=== PATIENT | male | born 1965 | race Caucasian/White ===

== ENCOUNTER 2020-08-20 16:13 | Outpatient (CLI) | payer OTHER, SELFPAY ==
--- NOTE | ~2020-08-20 | XR_ITS ---
EXAMINATION: XR hip BI 2V w AP pelvis DATE: 08/20/2020 17:03 INDICATION: Severe right sacroiliitis. Polyarticular psoriatic arthritis. TECHNIQUE: An anteroposterior view of the pelvis and 2 views of each hip were obtained. COMPARISON: None. FINDINGS: Bone alignment is normal. No fracture. There is mild osteoarthritis of the hips. The sacroi liac joints are normal. IMPRESSION: 1. Mild osteoarthritis of the hips. 2. Normal sacroiliac joints. Reviewed, dictated and finalized at location A.
== END 2020-08-20 16:14 ==
PROVIDERS: Visit Provider Internal Medicine
DX: M46.1 Sacroiliitis, not elsewhere classified (principal); L40.59 Other psoriatic arthropathy; M76.60 Achilles tendinitis, unspecified leg; M16.0 Bilateral primary osteoarthritis of hip
CPT/HCPCS: 73521

== ENCOUNTER → 2020-11-28 16:00 | Outpatient (CLI) | payer OTHER, SELFPAY ==
--- NOTE | ~2020-11-28 | XR_ITS ---
XR hand RT 2V, XR wrist RT 2V 11/28/2020 17:29 Indication: Joint pain Procedure: 2 views of the right hand and 2 views of the right wrist Comparison: No prior studies for comparison. Findings: There is osteoarthritis of the interphalangeal joints, first, second and third metacarpopha langeal joints, first carpometacarpal and triscaphe joints. Normal mineralization. No fracture or tra umatic malalignment. No significant soft tissue abnormality. No foreign bodies. Impression: 1: Mild polyarticular osteoarthritis of the right hand and wrist. Reviewed, dictated and finalized at location A. Impression: 1: Mild polyarticular osteoarthritis of the right hand and wrist. Impression: 1: Mild polyarticular osteoarthritis of the right hand and wrist.
--- NOTE | ~2020-11-28 | XR_ITS ---
XR hand LT 2V, XR wrist LT 2V 11/28/2020 17:29 Indication: Multiple joint pain. Procedure: 2 views of the left hand and left wrist Comparison: No prior studies for comparison. Findings: There is mild osteoarthritis of the interphalangeal joints, first, second, third and fourth metacarpophalangeal joints, first carpometacarpal and triscaphe joints. Normal mineralization. No fr acture or traumatic malalignment. No significant soft tissue abnormality. No foreign bodies. Impression: 1: Mild polyarticular osteoarthritis of the left hand and wrist. Reviewed, dictated and finalized at location A. Impression: 1: Mild polyarticular osteoarthritis of the left hand and wrist. Impression: 1: Mild polyarticular osteoarthritis of the left hand and wrist.
--- NOTE | ~2020-11-28 | XR_ITS ---
XR ankle RT 2V, XR foot RT 2V 11/28/2020 17:29 Indication: Polyarticular osteoarthritis Procedure: 2 views each of the right ankle and foot Comparison: No prior studies for comparison. Findings: There is mild polyarticular osteoarthritis of the midfoot and right first MTP joint. Promin ent degenerative calcaneal enthesophytes. No erosive changes. Ankle mortise intact. No focal soft tis irish abnormality. No foreign bodies. Impression: 1: Mild polyarticular osteoarthritis of the right ankle and foot. Reviewed, dictated and finalized at location A. Impression: 1: Mild polyarticular osteoarthritis of the right ankle and foot. Impression: 1: Mild polyarticular osteoarthritis of the right ankle and foot.
--- NOTE | ~2020-11-28 | XR_ITS ---
XR sacroiliac joints min 3V 11/28/2020 17:29 Indication: Multiple joint pain Procedure: 3 views of the sacroiliac joints Comparison: 08/20/2020 Findings: The sacroiliac joints are symmetric without significant degenerative change, erosion or ank ylosis. Sacral foramen are symmetric. There are symmetric degenerative changes of the hips. Impression: 1: No significant abnormality of the sacroiliac joints. Reviewed, dictated and finalized at location A. Impression: 1: No significant abnormality of the sacroiliac joints.
--- NOTE | ~2020-11-28 | XR_ITS ---
XR ankle LT 2V, XR foot LT 2V 11/28/2020 17:29 Indication: Multiple joint pain Procedure: 2 views left ankle and left foot Comparison: No prior studies for comparison. Findings: There are degenerative calcaneal enthesophytes. No fracture or traumatic malalignment there is a metallic radiopaque device at the calcaneus posteriorly. No significant soft tissue abnormality . Osteopenia. No erosive changes. There are mild degenerative changes of the hindfoot. There is mild osteoarthritis of the first MTP joint. Impression: 1: Mild polyarticular osteoarthritis. Reviewed, dictated and finalized at location A. Impression: 1: Mild polyarticular osteoarthritis. Impression: 1: Mild polyarticular osteoarthritis.
== END ==
DX: M79.10 Myalgia, unspecified site (principal); R53.81 Other malaise; M19.042 Primary osteoarthritis, left hand; M19.032 Primary osteoarthritis, left wrist; M19.041 Primary osteoarthritis, right hand; M19.031 Primary osteoarthritis, right wrist; M19.072 Primary osteoarthritis, left ankle and foot; M19.071 Primary osteoarthritis, right ankle and foot
CPT/HCPCS: 72202; 73100; 73120; 73600; 73620

== ENCOUNTER → 2021-11-21 16:29 | Outpatient (CLI) | payer OTHER, SELFPAY ==
--- NOTE | ~2021-11-21 | XR_ITS ---
XR thoracic spine 2V DATE: 11/21/2021 18:01 INDICATION: Back pain TECHNIQUE: Standing AP, lateral and swimmer views COMPARISON: None FINDINGS: Prominent degenerative disc disease in the lower cervical spine including severe degenerati ve disc disease at the mid and lower cervical spine. Diffuse idiopathic skeletal hyperostosis of the thoracic spine. No thoracic spine fracture or bone destruction is detected. The thoracic pedicles are intact. No para spinal soft tissue thickening. IMPRESSION: Severe degenerative disc disease of the mid and lower cervical spine Diffuse idiopathic skeletal hyperostosis of the thoracic spine Reviewed, dictated and finalized at location B. IMPRESSION: Severe degenerative disc disease of the mid and lower cervical spin e Diffuse idiopathic skeletal hyperostosis of the thoracic spine
--- NOTE | ~2021-11-21 | XR_ITS ---
XR lumbar spine 2-3V DATE: 11/21/2021 18:01 INDICATION: Back pain TECHNIQUE: AP, lateral and coned lateral lumbosacral views COMPARISON: None FINDINGS: Prominent degenerative spurring in the lower thoracic spine. Huge bridging osteophyte on th e right at L1-2. There is moderately severe degenerative disc disease at L1 to and L2-3, with mild re trolisthesis at L2-3. Moderate degenerative disc disease at L4-5 and L5-S1. There is minimal retrolisthesis at L5-S1. There is grade 1 anterolisthesis at L3-4 and L4-5 due to degenerative change at the apophyseal joints . No fracture or bone destruction is detected. The lumbar pedicles are intact. The sacroiliac joints are intact. IMPRESSION: Multilevel degenerative disc disease. Huge bridging osteophyte on the right at L1-2. Grade 1 anterolisthesis at L3-4 and L4-5 due to degenerative change at the apophyseal joints Reviewed, dictated and finalized at location B. IMPRESSION: Multilevel degenerative disc disease. Huge bridging osteophyte on t he right at L1-2. Grade 1 anterolisthesis at L3-4 and L4-5 due to degenerative change at the apop hyseal joints
== END ==
PROVIDERS: PCP Nurse Practitioner Family; Visit Provider Internal Medicine Rheumatology
DX: M51.36 Other intervertebral disc degeneration, lumbar region (principal); M48.14 Ankylosing hyperostosis [Forestier], thoracic region
CPT/HCPCS: 72070; 72100

== ENCOUNTER → 2021-12-30 17:04 | Outpatient (CLI) | payer OTHER, SELFPAY ==
--- NOTE | ~2021-12-30 | MR_ITS ---
EXAMINATION: MR lumbar spine wo con DATE: 12/30/2021 17:36 INDICATION: Dorsalgia. TECHNIQUE: Magnetic resonance imaging (MRI) of the lumbar spine was performed without intravenous con trast. Sequences included sagittal T2-weighted FSE, sagittal T2-weighted FS FSE, sagittal T1-weighted FSE, and axial T2-weighted FSE. COMPARISON: Lumbar spine radiographs 11/21/2021 FINDINGS: There is 5 degrees dextrocurvature of lumbar spine. There is 6 mm retrolisthesis of L2 on L 3 and 3 mm anterolisthesis of L3 on L4 and L4 on L5. There is mild chronic anterior wedging of T12 an d L1 vertebral bodies, likely physiologic. There is moderately decreased disc height at L2-L3 and mil dly decreased disc height at L3-L4, L4-L5, and L5-S1. The distal spinal cord signal intensity is norm al. The conus medullaris is at L1. The following disc levels are specifically discussed: L1-L2: The disc is mildly bulging. There is severe bilateral facet joint osteoarthritis. There is mil d bilateral neural foraminal stenosis. There is no central canal stenosis. L2-L3: The disc is bulging and has an annular fissure. There is severe bilateral facet joint osteoart hritis. There is hypertrophy of the ligamentum flavum. There is moderate bilateral neural foraminal s tenosis. There is moderate central canal stenosis. L3-L4: The disc is bulging. There is severe bilateral facet joint osteoarthritis. There is hypertroph y of the ligamentum flavum. There is mild bilateral neural foraminal stenosis. There is severe centra l canal stenosis. L4-L5: The disc is bulging. There is severe bilateral facet joint osteoarthritis. There is hypertroph y of the ligamentum flavum. There is moderate bilateral neural foraminal stenosis. There is severe ce ntral canal stenosis. L5-S1: The disc is bulging and has an annular fissure. There is severe bilateral facet joint osteoart hritis. There is hypertrophy of the ligamentum flavum. There is mild bilateral neural foraminal steno sis. There is mild central canal stenosis. There is moderate stenosis of the lateral recesses. IMPRESSION: 1. Severe lumbar spondylosis. Reviewed, dictated and finalized at location A.
== END ==
PROVIDERS: PCP Family Medicine; Visit Provider Internal Medicine Rheumatology
DX: M47.896 Other spondylosis, lumbar region (principal)
CPT/HCPCS: 72148

== ENCOUNTER → 2022-03-04 16:02 | Outpatient (CLI) | payer OTHER, SELFPAY ==
--- NOTE | ~2022-03-04 | MR_ITS ---
EXAMINATION: MR ankle RT wo con DATE: 03/04/2022 16:36 INDICATION: Right ankle pain TECHNIQUE: Magnetic resonance imaging (MRI) of the right ankle was performed without intravenous cont rast. Sequences included sagittal, coronal, and axial proton-density weighted fast spin echo without and with fat saturation. COMPARISON: None. FINDINGS: Medial ankle ligaments: Heterotopic ossification along the deep deltoid ligament with loss of the normally well-defined stria kay pattern consistent with sequela of chronic sprain. Additional heterotopic ossification consistent with sequela of chronic sprain along the anterior superficial deltoid ligament. The spring ligament complex is normal. Lateral ankle ligaments: The anterior and posterior inferior tibiofibular ligaments are normal. The anterior talofibular ligam ent appears lax and attenuated consistent with chronic tear. Calcaneofibular and posterior talofibula r ligaments are normal. Tendons: Moderate tendinosis of distal Achilles tendon which is completely avulsed and retracted 5 cm proximal from its calcaneal insertion where there is a large plantar calcaneal spur mild reactive edema. Mild tendinopathy and small longitudinal split tear of the peroneus longus tendon at the level of the dis nino tip of the lateral malleolus. The peroneus brevis tendon is normal. The tibialis anterior and ext ensor hallucis longus and extensor digitorum longus tendons are normal. The tibialis posterior, flexo r digitorum longus and flexor hallucis longus tendons are normal. Plantar fascia: Likely chronic plantar enthesopathy with thickening and increased signal of the proximal plantar apon eurosis with moderate-sized plantar calcaneal spur at its origin. No surrounding soft tissue or marro w edema to suggest acute plantar fasciitis. Bones/other: Bone alignment is normal. There is marrow edema surrounding a small linear low signal intensity subco rtical fracture line along the plantar/lateral margin of the head of the talus underlying its articul ation at the superior facet of the subtalar joint. Bone marrow signal is otherwise normal. No patholo gic marrow replacing process. Mild polyarticular osteoarthritis at the right ankle and a few of the t arsal metatarsal joints in the midfoot. Fluid: Small fluid collection at the retracted Achilles tendon tear defect. Likely reactive edema in the sub cutaneous tissues surrounding the right ankle. Physiologic amount fluid in the joint spaces. IMPRESSION: 1. Moderate Achilles tendinosis with full-thickness avulsion and 5 cm proximal retraction. 2. Small nondisplaced subarticular fracture line at the head of the talus underlying articulation at the anterior facet of the subtalar joint. 3. Mild peroneus longus tendinopathy with small longitudinal split tear. 4. Chronic medial and lateral ankle sprains with scarring and heterotopic ossification at the deep an d superficial deltoid ligament as well as lax and attenuated appearing anterior talofibular ligament which is of doubtful functional integrity. 5. Moderate chronic plantar enthesopathy without tear. Reviewed, dictated and finalized at location B. IMPRESSION: 1. Moderate Achilles tendinosis with full-thickness avulsion and 5 cm proximal retraction. 2. Small nondisplaced subarticular fracture line at the head of the talus under lying articulation at the anterior facet of the subtalar joint. 3. Mild peroneus longus tendinopathy with small longitudinal split tear. 4. Chronic medial and lateral ankle sprains with scarring and heterotopic ossif ication at the deep and superficial deltoid ligament as well as lax and attenua kay appearing anterior talofibular ligament which is of doubtful functional int egrity. 5. Mo
== END ==
PROVIDERS: PCP Family Medicine; Visit Provider Podiatrist Foot & Ankle Surgery
DX: M76.61 Achilles tendinitis, right leg (principal); S92.124A Nondisplaced fracture of body of right talus, initial encounter for closed fracture; X58.XXXA Exposure to other specified factors, initial encounter
CPT/HCPCS: 73721

== ENCOUNTER 2022-09-19 08:06 | Emergency (ER) | payer OTHER, SELFPAY ==
[2022-09-19 08:16] VITALS: BP 138/117; PULSE 89; RESP 16; TEMP 38.3; O2SAT 97
--- NOTE | 2022-09-19 08:23 | ED.URI ---
HPI - URI/Sore Throat General Chief Complaint: Upper Respiratory Infection Stated Complaint: sore throat/body aches/weakness Time Seen by Provider: 09/19/22 08:23 History of Present Illness HPI Narrative: 57-year-old male presented for complaint of sore throat, headache, body aches since yesterday. Endorses chills last night and started with painful swallow today. Also with cold sore to upper lip for about 6 days. He denies sick contacts. He has taken Tylenol and ibuprofen for symptoms. He denies sinus congestion, cough, shortness breath, wheezing, nausea, vomiting. Related Data Home Medications Medication Instructions Recorded Confirmed adalimumab 10 mg/0.2 mL 0 mg subcut .COMPLEX 09/19/22 09/19/22 subcutaneous syringe kit Allergies Allergy/AdvReac Type Severity Reaction Status Date / Time No Known Allergies Allergy Verified 09/19/22 08:11 Review of Systems Review of Systems: CONSTITUTIONAL: Reports body aches, fever, chills, or sweats. EYES: Denies visual changes, redness, or discharge. ENT: Denies rhinorrhea, congestion, or otalgia. CARDIOVASCULAR: Denies chest pain, palpitations, or edema. RESPIRATORY: Denies dyspnea. GASTROINTESTINAL: Denies abdominal pain, nausea, vomiting, or diarrhea. SKIN: Denies rash, itching, or wounds. MUSCULOSKELETAL: Denies back pain, joint pain, or myalgia. [facility] Past Medical History Medical History Chronic bilateral low back pain HLD (hyperlipidemia) HTN (hypertension) IFG (impaired fasting glucose) MONIKA (obstructive sleep apnea) Seronegative rheumatoid arthritis Surgical History Surgical History H/O Achilles tendon repair Family History Family History Mother Hypertension Family history of diabetes mellitus in first degree relative Father Family history of elevated blood lipids Sibling Family history of malignant neoplasm of breast in first degree relative Social History Social History Smoking status: Never smoker Second hand tobacco smoke exposure: No Alcohol intake: current Drinks per week: 4 Substance use: never Substance use type: does not use Living arrangements: with family Occupation/Education: occupation Gender identity (if verbalized by the patient): Male Sexual Orientation (if Verbalized by the Patient): Straight or Heterosexual Exam Narrative: GENERAL: Mildly ill-appearing, no acute distress. EYES: conjunctivae clear ENT: Mucous membranes moist. TM pearly wilson with normal light reflex bilaterally; no tragal tenderness. Right upper lip with dried skin lesion consistent with cold sore. oropharynx erythematous Tonsils enlarged and without exudate. No drooling, no hoarseness, no trismus, uvula midline. No tripod positioning, hot potato voice, or soft palate swelling. NECK: Supple. No lymphadenopathy CHEST: Clear to auscultation, breath sounds equal. No respiratory distress, speaks in full sentences. HEART: Regular rate and rhythm. No murmur heard. SKIN: Warm, dry, no rash. NEURO: Alert and oriented x3. Course Course Emergency Course: Patient is aware of diagnosis, understands and agrees to treatment plan. Anticipatory guidance given. Patient agrees to follow-up as directed and is aware of reasons to seek care at the emergency department. Portions of this record may have been created with voice recognition software Level of Care: Express Care Visit Vital Signs Vital signs: Vital Signs Temperature 100.9 F H 09/19/22 08:16 Pulse Rate 89 09/19/22 08:16 Respiratory Rate 16 09/19/22 08:16 Blood Pressure 138/117 H 09/19/22 08:16 Pulse Oximetry 97 09/19/22 08:16 Oxygen Delivery Room Air 09/19/22 08:16 Temperature 100.9 F H 09/19/22 08:16 Pulse Rate 89
== END 2022-09-19 08:48 | disposition home or self-care (01) ==
PROVIDERS: Emergency Provider Nurse Practitioner Family; PCP Family Medicine
DX: B34.9 Viral infection, unspecified (principal); Z20.822 Contact with and (suspected) exposure to COVID-19; E78.5 Hyperlipidemia, unspecified; I10 Essential (primary) hypertension; R73.01 Impaired fasting glucose; M06.00 Rheumatoid arthritis without rheumatoid factor, unspecified site
CPT/HCPCS: 87081; 87426; 87804; 87880; 99213; C9803; G0463

== ENCOUNTER 2023-04-08 01:59 | Day surgery (SDC) | payer OTHER, SELFPAY ==
[2023-03-25 15:17] VITALS: BMI 35.2
--- NOTE | 2023-04-06 09:17 | SUR.PREOP ---
Patient called regarding upcoming procedure. Reviewed preop instructions, appointment times, and procedure prep.
--- NOTE | 2023-04-07 14:12 | PM.HPGS ---
History of Present Illness History of Present Illness Consent: Risks, benefits, and alternatives have been discussed and questions answered. Patient agrees to proceed with procedure. Chief complaint: Eructation Narrative: Jeremías Gómez is a 57 year old male who has been troubled by persistent excessive eructation. This can occur after meals or even during meals. Review of Systems Review of Systems: All systems reviewed & are unremarkable except as noted in HPI and below PMFSH Past Medical History Medical History Belching symptom Chronic bilateral low back pain Colon cancer screening HLD (hyperlipidemia) HTN (hypertension) IFG (impaired fasting glucose) Obesity MONIKA (obstructive sleep apnea) Seronegative rheumatoid arthritis Surgical History Surgical History H/O Achilles tendon repair Family History Family History Mother Hypertension Family history of diabetes mellitus in first degree relative Father Family history of elevated blood lipids Sibling Family history of malignant neoplasm of breast in first degree relative Social History Social History Smoking status: Never smoker Second hand tobacco smoke exposure: No Alcohol intake: current Drinks per week: 4 Substance use: never Substance use type: does not use Living arrangements: with family Occupation/Education: occupation Gender identity (if verbalized by the patient): Male Sexual Orientation (if Verbalized by the Patient): Straight or Heterosexual Spiritual care concerns: No Meds Home Medications and Allergies Home Medications Medication Instructions Recorded Confirmed Type adalimumab-atto 40 mg/0.8 mL 40 mg (0.8 mL) subcut Q14D #0.8 mL 01/29/23 04/08/23 Rx subcutaneous syringe (Jenni(CF)) diclofenac sodium 75 mg 75 mg PO BID #90 tabs 01/29/23 04/08/23 Rx tablet,delayed release folic acid 1 mg tablet 1 mg PO DAILY #60 tabs 01/29/23 04/08/23 Rx methotrexate sodium 5 mg tablet 20 mg PO WEEKLY 01/29/23 04/08/23 History atorvastatin 20 mg tablet 20 mg PO QHS #90 tabs 02/26/23 04/08/23 Rx lisinopril 40 mg tablet 40 mg PO DAILY #90 tabs 02/26/23 04/08/23 Rx hydrochlorothiazide 25 mg tablet 25 mg PO DAILY #90 tabs 03/27/23 04/08/23 Rx Allergies Allergy/AdvReac Type Severity Reaction Status Date / Time No Known Allergies Allergy Verified 04/08/23 08:25 Exam Const: General: alert Orientation/consciousness: patient oriented x3 Resp: Auscultation: clear to auscultation bilaterally Cardio: Rhythm: regular rhythm GI: GI Palp: Yes Soft to palpation and No Tenderness to palpation present (GI) Neuro: General: patient oriented x3 Assessment and Plan Assessment and plan (1) Belching symptom: Code(s): R14.2 - Eructation Status: Acute Assessment and Plan: EGD with possible biopsy or dilatation or cautery.
[2023-04-08 08:27] VITALS: BP 187/98; PULSE 66; RESP 20; TEMP 36.2; O2SAT 97; BMI 35.6
[2023-04-08] MEDS: LACTATED RINGERS 1,000 ML 150 ML IV CONT (08:29)
--- NOTE | 2023-04-08 09:01 | WPDANESEPPF ---
Anes - Initial Pre Proc Eval Procedure: Operation Date: 04/08/23 09:30 Proposed Procedures p Esophagogastroduodenoscopy - Nate Bermudez MD Date/Time: 04/08/23 09:01 Surgeon: Nate Bermudez MD Pre Op Diagnosis: Eructation Patient Data Age: 57 Gender: M Height: 1.83 m Weight: 119.3 kg Last Vital Signs Temp 97.2 F L 04/08/23 08:27 Pulse 66 04/08/23 08:27 Resp 20 04/08/23 08:27 BP 187/98 H 04/08/23 08:27 Pulse Ox 97 04/08/23 08:27 O2 Del Method Room Air 04/08/23 08:27 Allergies Allergy/AdvReac Type Severity Reaction Status Date / Time No Known Allergies Allergy Verified 04/08/23 08:25 Home Medications Medication Instructions Recorded Confirmed Type adalimumab-atto 40 mg/0.8 mL 40 mg (0.8 mL) subcut Q14D #0.8 mL 01/29/23 04/08/23 Rx subcutaneous syringe (Amjevita(CF)) diclofenac sodium 75 mg 75 mg PO BID #90 tabs 01/29/23 04/08/23 Rx tablet,delayed release folic acid 1 mg tablet 1 mg PO DAILY #60 tabs 01/29/23 04/08/23 Rx methotrexate sodium 5 mg tablet 20 mg PO WEEKLY 01/29/23 04/08/23 History atorvastatin 20 mg tablet 20 mg PO QHS #90 tabs 02/26/23 04/08/23 Rx lisinopril 40 mg tablet 40 mg PO DAILY #90 tabs 02/26/23 04/08/23 Rx hydrochlorothiazide 25 mg tablet 25 mg PO DAILY #90 tabs 03/27/23 04/08/23 Rx Patient hx anesthesia problems: none Family hx anesthesia problems: none Results Review: All pre-operative results and documents have been reviewed as part of the pre-operative evaluation. [facility] Past Medical History Medical History Belching symptom Chronic bilateral low back pain Colon cancer screening HLD (hyperlipidemia) HTN (hypertension) IFG (impaired fasting glucose) Obesity MONIKA (obstructive sleep apnea) Seronegative rheumatoid arthritis Surgical History Surgical History H/O Achilles tendon repair Family History Family History Mother Hypertension Family history of diabetes mellitus in first degree relative Father Family history of elevated blood lipids Sibling Family history of malignant neoplasm of breast in first degree relative Social History Social History Smoking status: Never smoker Second hand tobacco smoke exposure: No Alcohol intake: current Drinks per week: 4 Substance use: never Substance use type: does not use Living arrangements: with family Occupation/Education: occupation Gender identity (if verbalized by the patient): Male Sexual Orientation (if Verbalized by the Patient): Straight or Heterosexual Spiritual care concerns: No Anes - Eval Final PreProcedure Day of Procedure 04/08/23 09:01 Patient weight: obese Heart: regular rate and rhythm Lungs: clear to auscultation Airway: Mallampati scale class II Neurological: alert and oriented Last oral intake: >/= 8 hours ASA classification: III Emergent: no Anesthetic plan: proceed Anesthesia type and monitoring: general GIVS and standard monitoring Results Review: All pre-operative results and documents have been reviewed as part of the pre-operative evaluation. Informed Consent: The patient's anesthetic plan and its attendant risks and benefits were discussed with the patient/family/POA. Questions were solicited and answers provided to the satisfaction of the patient/family/POA.
[2023-04-08 09:40] VITALS: BP 114/56; PULSE 62; RESP 18; O2SAT 97
[2023-04-08 09:50] VITALS: BP 117/47; PULSE 61; RESP 16; O2SAT 97
[2023-04-08 10:00] VITALS: BP 137/68; PULSE 60; RESP 22; O2SAT 96
== END 2023-04-08 10:07 | disposition home or self-care (01) ==
PROVIDERS: PCP Family Medicine; Visit Provider Internal Medicine Gastroenterology
PROC: 0DJ08ZZ Inspection of Upper Intestinal Tract, Via Natural or Artificial Opening Endoscopic (ICD-10-PCS; CPT 43235; principal; 2023-04-08 09:30)
DX: K21.9 Gastro-esophageal reflux disease without esophagitis (principal); E78.5 Hyperlipidemia, unspecified; I10 Essential (primary) hypertension; G47.33 Obstructive sleep apnea (adult) (pediatric); M06.00 Rheumatoid arthritis without rheumatoid factor, unspecified site; E66.9 Obesity, unspecified; Z68.35 Body mass index [BMI] 35.0-35.9, adult; Z79.620 Long term (current) use of immunosuppressive biologic; Z79.631 Long term (current) use of antimetabolite agent; Z80.3 Family history of malignant neoplasm of breast
CPT/HCPCS: 43239; 87081; 88305; J2704; J7120

== ENCOUNTER 2023-05-04 07:35 | Outpatient (CLI) | payer OTHER, SELFPAY ==
--- NOTE | ~2023-05-04 | US_ITS ---
EXAMINATION: US abdomen limited DATE: 05/04/2023 08:08 INDICATION: Abnormal results of liver function studies. TECHNIQUE: Multiple grayscale and Doppler ultrasound images of the abdomen were obtained. COMPARISON: None FINDINGS: The visualized portions of the head and body of the pancreas are normal. There is diffuse h epatic steatosis. No liver surface nodularity. There is normal flow in main portal vein. The gallblad douglas is normal in size. No gallstones or gallbladder wall thickening. There is no sonographic Scales s ign. The common duct is normal and measures 6 mm. IMPRESSION: 1. Diffuse hepatic steatosis. Reviewed, dictated and finalized at location A. [employer]
== END 2023-05-04 07:36 ==
PROVIDERS: PCP Family Medicine; Visit Provider Internal Medicine Gastroenterology
DX: R94.5 Abnormal results of liver function studies (principal); K76.0 Fatty (change of) liver, not elsewhere classified
CPT/HCPCS: 76705

== ENCOUNTER 2023-10-26 08:13 | Emergency (ER) | payer OTHER, SELFPAY ==
[2023-10-26 08:21] VITALS: BP 179/77; PULSE 61; RESP 14; TEMP 36.6; O2SAT 96
--- NOTE | 2023-10-26 08:40 | ED.SKABFB ---
HPI - Skin/Abscess/Foreign Bdy General Chief complaint: Eye Problems Stated complaint: Eye Irritation Time Seen by Provider: 10/26/23 08:30 Source: patient and RN notes reviewed Mode of arrival: ambulatory Limitations: no limitations History of Present Illness HPI narrative: Patient presents today complaining of pruritic rash to his face and swelling to around his eyes. Symptoms started 4 days ago and have been slightly worsened since onset. Symptoms started after he has been clearing weeds around his home. Possibly poison miguelina. Reported some lip tingling and itching this morning, but this has since resolved. He has tried no medication for symptoms prior to arrival. Denies shortness of breath or difficulty swallowing. Related Data Home Medications Medication Instructions Recorded Confirmed methotrexate sodium 5 mg tablet 20 mg PO WEEKLY 01/29/23 10/26/23 Allergies Allergy/AdvReac Type Severity Reaction Status Date / Time No Known Allergies Allergy Verified 10/26/23 08:19 Review of Systems Review of Systems: CONSTITUTIONAL: Denies body aches, fever, chills, or sweats. EYES: Denies visual changes, redness, or discharge. ENT: Denies rhinorrhea, congestion, sore throat, or otalgia. CARDIOVASCULAR: Denies chest pain, palpitations, or edema. RESPIRATORY: Denies cough or dyspnea. GASTROINTESTINAL: Denies abdominal pain, nausea, vomiting, or diarrhea. GENITOURINARY: Denies dysuria or hematuria. SKIN: + pruritic facial rash and eye swelling MUSCULOSKELETAL: Denies back pain, joint pain, or myalgia. NEUROLOGIC: Denies headache, numbness, tingling, or weakness. PSYCH: Denies depression or anxiety. [facility] Past Medical History Medical History Belching symptom Chronic bilateral low back pain Colon cancer screening Fatty liver HLD (hyperlipidemia) HTN (hypertension) IFG (impaired fasting glucose) Obesity MONIKA (obstructive sleep apnea) Seronegative rheumatoid arthritis Surgical History Surgical History H/O Achilles tendon repair Family History Family History Mother Hypertension Family history of diabetes mellitus in first degree relative Father Family history of elevated blood lipids Sibling Family history of malignant neoplasm of breast in first degree relative Social History Social History Smoking status: Never smoker Second hand tobacco smoke exposure: No Alcohol intake: current Drinks per week: 4 Substance use: never Substance use type: does not use Living arrangements: with family Occupation/Education: occupation Gender identity (if verbalized by the patient): Male Sexual Orientation (if Verbalized by the Patient): Straight or Heterosexual Spiritual care concerns: No Comments At time of signature, I have reviewed and agree with nursing past medical, surgical, social and family history unless otherwise noted. Please see nursing chart for further information. There is no relevant family history pertinent to the presenting complaint Exam Narrative: GENERAL: Well-appearing, well-nourished, and in no acute distress. HEAD: Normocephalic, atraumatic. EYES: EOMI. PERRL. No redness or drainage. Conjunctivae normal. Moderate swelling to the bilateral periorbital area. ENT: Mucous membranes pink and moist. Nares clear. No rhinorrhea. NECK: Normal AROM. CHEST: No respiratory distress. EXTREMITIES: Normal range of motion. No edema. SKIN: Warm, dry. Capillary refill normal. Normal skin turgor. Erythematous maculopapular rash throughout most of the face and into the anterior hairline. No vesicles or papules. No induration or drainage. NEURO: No focal deficits. Alert and oriented x3. Gait steady. PSYCH: Normal affect. No signs of depress
[2023-10-26 08:44] VITALS: PULSE 61; RESP 14; O2SAT 96
== END 2023-10-26 08:55 | disposition home or self-care (01) ==
PROVIDERS: Emergency Provider Nurse Practitioner; PCP Family Medicine
DX: L25.5 Unspecified contact dermatitis due to plants, except food (principal); K76.0 Fatty (change of) liver, not elsewhere classified; E78.5 Hyperlipidemia, unspecified; I10 Essential (primary) hypertension; R73.01 Impaired fasting glucose; E66.9 Obesity, unspecified; Z68.36 Body mass index [BMI] 36.0-36.9, adult; M06.00 Rheumatoid arthritis without rheumatoid factor, unspecified site
CPT/HCPCS: 99213; G0463

== ENCOUNTER 2024-05-19 10:17 | Emergency (ER) | payer OTHER, SELFPAY ==
[2024-05-19 10:21] VITALS: BP 147/81; PULSE 67; RESP 16; TEMP 37; O2SAT 97
--- NOTE | 2024-05-19 10:43 | ED.URI ---
HPI - URI/Sore Throat General Chief Complaint: Ear Stated Complaint: lt ear discomfort, sorethroat Time Seen by Provider: 05/19/24 10:48 Source: patient, RN notes reviewed and old records reviewed Mode of arrival: ambulatory Limitations: no limitations History of Present Illness HPI Narrative: 58-year-old male presents to [facility] sore throat and left ear pain since yesterday. Has had some postnasal drainage on and off for a couple of weeks. Denies fevers. Has not taken anything for his symptoms Onset (ago): day(s) (1) Treatments prior to arrival: none Related Data Home Medications ?Medication ?Instructions ?Recorded ?Confirmed ?Last Taken ?Type gabapentin 100 mg capsule mg 05/19/24 Unknown History Allergies Allergy/AdvReac Type Severity Reaction Status Date / Time No Known Allergies Allergy Verified 05/19/24 10:40 Review of Systems Review of Systems: All systems reviewed & are unremarkable except as noted in HPI and below Constitutional: Constitutional: Reports no additional constitutional complaints ENT: Reports as per HPI, Reports otalgia and Reports sore throat Cardiovascular: Cardiovascular: Reports no additional cardiovascular complaints, Denies chest pain and Denies dyspnea Respiratory: Respiratory: Reports no additional respiratory complaints, Denies chest congestion, Denies cough and Denies dyspnea Musculoskeletal: Musculoskeletal: Reports no additional musculoskeletal complaints Integumentary/Breasts: Skin/Breast: Reports system reviewed and no additional complaints, except as docu PMFSH Past Medical History Medical History Fatty liver Obesity Colon cancer screening Belching symptom Chronic bilateral low back pain Seronegative rheumatoid arthritis MONIKA (obstructive sleep apnea) IFG (impaired fasting glucose) HLD (hyperlipidemia) HTN (hypertension) Surgical History Surgical History H/O Achilles tendon repair Family History Family History Mother Hypertension Family history of diabetes mellitus in first degree relative Father Family history of elevated blood lipids Sibling Family history of malignant neoplasm of breast in first degree relative Social History Social History Smoking status: Never smoker Second hand tobacco smoke exposure: No Alcohol intake: current Drinks per week: 4 Substance use: never Substance use type: does not use Living arrangements: with family Occupation/Education: occupation Gender identity (if verbalized by the patient): Male Sexual Orientation (if Verbalized by the Patient): Straight or Heterosexual Spiritual care concerns: No Comments At the time of my signature, I reviewed and agree with the nursing past medical, surgical, social, and family history. There is no relevant family history pertinent to the patient complaint. Exam Const: General: cooperative, healthy appearing, comfortable, no acute distress, well developed, alert and well nourished Nutritional Appearance: well nourished Orientation/consciousness: patient oriented x3 Limitations: no limitations HENMT: Head: normal to inspection Ears: EAC's normal, mastoids normal, no periauricular adenopathy and TM abnormal bulging on the left and with fluid behind the TM on the left; not erythematous Face/Nose/Sinus: normal facial exam and face symmetric Face and sinus: normal facial exam and face symmetric Mouth: Yes Normal oral and palatal mucosa present, Yes lip normal and Yes moist mucous membranes Throat: tonsils normal, uvula midline, postnasal drainage and no uvular edema Eyes: General: appearance normal, both eyes and all related structures Neck: Neck: normal visual inspection, full ROM, no lymphadenopathy and no meningeal signs Chest: Chest palpation & inspection: normal inspection of the chest Resp: Effort & Inspection: normal respiratory effort and able to speak in complete sentences Auscultation: clear to auscultation bilaterally, no crackles, no rales, no rhonchi and no wheezes Cardio: Rate: regular rate Skin: General skin exam: normal color and no rashes or lesions noted Neuro: General: patient oriented x3, gait normal, moves all extremities and no meningeal signs Cognition (Neuro): normal cognition Speech: normal speech Gait exam (Neuro): Normal gait present Extrem: General: normal to inspection, full ROM, capillary refill normal and normal gait Psych: Appearance: grossly normal and well kempt Mental Status: mental status grossly normal Speech and movement: Normal speech and movement present and Clear speech present Affect: normal affect Attitude: cooperative Course Course Level of Care: Express Care Visit Vital Signs Vital signs: Vital Signs Temperature 98.6 F 05/19/24 10:21 Pulse Rate 67 05/19/24 10:21 Respiratory Rate 16 05/19/24 10:21 Blood Pressure 147/81 H 05/19/24 10:21 Pulse Oximetry 97 05/19/24 10:21 Oxygen Delivery Room Air 05/19/24 10:21 Temperature 98.6 F 05/19/24 10:21 Pulse Rate 67 05/19/24 10:21 Respiratory Rate 16 05/19/24 10:21 Blood Pressure 147/81 H 05/19/24 10:21 Pulse Oximetry 97 05/19/24 10:21 Oxygen Delivery Room Air 05/19/24 10:21 Reviewed MDM - URI/Sore Throat MDM Narrative Medical decision making narrative: Patient sitting comfortably in exam room. Nontoxic vitals stable. Patient in acute distress. Patient presents with 1 day history left ear discomfort, sore throat. Strep test is negative, will culture. Flu and COVID test offered, patient declined Patient exam with fluid left ear, significant amount of postnasal drainage. No other acute findings noted on exam Patient appropriate for outpatient treatment of viral URI Discharge instructions reviewed with patient, as well as provided in writing per nursing staff. The instructions also include specific and strict return/GO TO THE ER as well as f/u information. All questions have been answered, and the patient deny any further questions with discharge and discharge plan. Some parts of this dictation were generated by voice recognition software and may contain typographical and/or grammatical inaccuracies. Differential Diagnosis Differential diagnosis: Likely upper respiratory infection, otitis media, sinusitis, viral infection, bronchitis and pharyngitis Lab Data Labs: Lab Results 05/19/24 Range/Units 10:24 POC Grp A Strep Screen Negative (Negative) Reviewed Critical Care Time Critical Care Time Critical Care Time: No Discharge Plan Discharge Clinical Impression: Upper respiratory infection, viral, PND (post-nasal drip) Acute serous otitis media of left ear Qualifiers: Recurrence: not specified as recurrent Qualified Code(s): H65.02 - Acute serous otitis media, left ear Patient Disposition: Home, Self-Care Condition: Stable Instructions: Antibiotic Form, Upper Respiratory Infection (ED), Fluid In The Ear (Serous Otitis Media) (ED), Postnasal Drip (DC) Additional Instructions: Your rapid strep swab was negative today at [facility]. A throat culture will be sent to the laboratory for further testing. If the test is positive, you will receive a phone call within 48 hours and an appropriate antibiotic will be initiated at that time. Your symptoms are likely due to a viral illness, which is not treated with antibiotics. Typically viral infections last 7-10 days, can linger for couple of weeks. It is very important to treat your symptoms. Drink plenty of water, Gatorade, Pedialyte, ice pops or Jell-O. -Alternate Tylenol and Motrin per package directions for fever or pain. You can alternate every 4 hours -Antihistamine medication such as Benadryl at night and Zyrtec/Claritin/Desirae during the day can help improve symptoms. -doing daily nasal irrigations can help relieve pressure your sinuses. Things like a Neti pot -Use Flonase twice a day for 5 days then daily to help reduce the inflammation and dry up your sinuses. -You can also use Coricidin HBP or Mucinex, please make sure it is safe with blood pressure medication. Be sure to drink plenty of water with this medication at least 8 ounces with every dose and it is important to drink 8 to 10 glasses of water per day. Water is a natural decongestant -Eat and drink things that are easy to swallow, like tea or soup, or popsicles. -Oral rinses such as: Salt water gargles and/or may use topical anesthetic (eg. Chloraseptic spray) or lozenges to relieve dryness or throat pain). -Frequent hand washing or hand medical imaging technologist is one of the best ways to prevent spread of infection. -Using a vaporizer or humidifier at night will also help thin secretions and help with coughing up phlegm. -Follow up with primary care provider in 7-10 days if condition is not improving - For new or worsening symptoms go directly to the nearest ER Patient Language: Nepalese Prescriptions: New methylprednisolone [Medrol (Ian)] 4 mg tablets,dose pack See Rx Instructions PO .COMPLEX Qty: 21 0RF Rx Instructions: orally per package directions No Action gabapentin 100 mg capsule atorvastatin 20 mg tablet 20 mg PO QHS Qty: 90 3RF hydrochlorothiazide 25 mg tablet 25 mg PO DAILY Qty: 90 3RF lisinopril 40 mg tablet 40 mg PO DAILY Qty: 90 3RF amlodipine 5 mg tablet 5 mg PO DAILY Qty: 90 2RF sildenafil 50 mg tablet 50 mg PO DAILY PRN (Reason: sexual activity) Qty: 30 2RF Rx Instructions: administer 30 minutes to 4 hours before activity diclofenac sodium 75 mg tablet,delayed release (DR/EC) 75 mg PO BID Qty: 90 0RF omeprazole 40 mg capsule,delayed release(DR/EC) 40 mg PO DAILY Qty: 30 5RF Follow-up/Referrals: Nixon Snell MD [Primary Care Provider] - 2 Weeks ([facility] care follow up) Stand Alone Forms: Work/School Release IP Time of Disposition: 10:59
[2024-05-19 10:50] LABS: EDSTREPNEGPOS1 Negative (Negative)
== END 2024-05-19 11:01 | disposition home or self-care (01) ==
PROVIDERS: Emergency Provider Nurse Practitioner; PCP Family Medicine
DX: J06.9 Acute upper respiratory infection, unspecified (principal); R09.82 Postnasal drip; H65.02 Acute serous otitis media, left ear; I10 Essential (primary) hypertension; E78.5 Hyperlipidemia, unspecified; M06.00 Rheumatoid arthritis without rheumatoid factor, unspecified site; E66.9 Obesity, unspecified; Z68.36 Body mass index [BMI] 36.0-36.9, adult; K76.0 Fatty (change of) liver, not elsewhere classified
CPT/HCPCS: 87081; 87880; 99213; G0463

== ENCOUNTER 2024-07-15 08:53 | Emergency (ER) | payer OTHER, SELFPAY ==
[2024-07-15 09:04] VITALS: BP 122/76; PULSE 75; RESP 16; TEMP 37.1; O2SAT 97
--- NOTE | 2024-07-15 09:27 | ED_ITS ---
HPI - General Adult General Chief complaint: Upper Respiratory Infection Stated complaint: DOHERTY,tired,bodyaches,chills History of Present Illness HPI narrative: Jeremías Gómez is a 58-year-old male who presents with complaints of having congestion, cough, body aches, feeling tired and worn out this started 3 days ago. States that he took care of his granddaughter who had the flu. He denies any nausea vomiting abdominal pain diarrhea. Unsure of any fevers Related Data Allergies Allergy/AdvReac Type Severity Reaction Status Date / Time No Known Allergies Allergy Verified 07/15/24 09:09 Review of Systems Review of Systems: All systems reviewed & are unremarkable except as noted in HPI and below PMFSH Past Medical History Medical History Fatty liver Obesity Colon cancer screening Belching symptom Chronic bilateral low back pain Seronegative rheumatoid arthritis MONIKA (obstructive sleep apnea) IFG (impaired fasting glucose) HLD (hyperlipidemia) HTN (hypertension) Surgical History Surgical History H/O Achilles tendon repair Family History Family History Mother Hypertension Family history of diabetes mellitus in first degree relative Father Family history of elevated blood lipids Sibling Family history of malignant neoplasm of breast in first degree relative Social History Social History Smoking status: Never smoker Second hand tobacco smoke exposure: No Alcohol intake: current Drinks per week: 4 Substance use: never Substance use type: does not use Living arrangements: with family Occupation/Education: occupation Gender identity (if verbalized by the patient): Male Sexual Orientation (if Verbalized by the Patient): Straight or Heterosexual Spiritual care concerns: No Exam Narrative: GENERAL: well-nourished, and in no acute distress. HEAD: Normocephalic, atraumatic. EYES: PERRLA and EOMI. ENT: Nares clear, no rhinorrhea or epistaxis. Mucous membranes moist. Oropharynx without tonsillar hypertrophy exudate or other lesions. Bilateral TMs pearly wilson nonbulging NECK: Supple. No adenopathy or masses. No carotid bruits or JVD CHEST: Clear to auscultation. No respiratory distress. No wheezes rales or rhonchi HEART: Regular rate and rhythm. No murmur heard. Normal peripheral pulses. EXTREMITIES: Normal range of motion. No edema. SKIN: Warm, dry, no rash. NEURO: No focal deficits. Alert and oriented x3. PSYCH: Normal mood and affect. Course Course Level of Care: Express Care Visit Vital Signs Vital signs: Vital Signs Temperature 37.1 C 07/15/24 09:04 Pulse Rate 75 07/15/24 09:04 Respiratory Rate 16 07/15/24 09:04 Blood Pressure 122/76 07/15/24 09:04 Pulse Oximetry 97 07/15/24 09:04 Oxygen Delivery Room Air 07/15/24 09:04 Temperature 37.1 C 07/15/24 09:04 Pulse Rate 75 07/15/24 09:04 Respiratory Rate 16 07/15/24 09:04 Blood Pressure 122/76 07/15/24 09:04 Pulse Oximetry 97 07/15/24 09:04 Oxygen Delivery Room Air 07/15/24 09:04 Medical Decision Making MDM Narrative Medical decision making narrative: ED COURSE AND MEDICAL DECISION MAKING: This 58 year old patient presents with symptoms most suggestive of viral upper respiratory tract infection. Lungs are clear bilaterally without any respiratory distress or accessory muscle use. Patient is discharged home in stable condition with expectant management. Return precautions were provided. Viral swab : Positive Flu A Procedures: Pulse oximetry interpretation - not hypoxic. Review of medical records. DISPOSITION: Discharged home in stable condition. IMPRESSION: Acute upper respiratory tract infection, likely viral. INfluenza A Medical Records Medical records reviewed: Yes I reviewed the external patient's medical records. Vital Signs Vital Signs: Vital Signs Temperature 37.1 C 07/15/24 09:04 Pulse Rate 75 07/15/24 09:04 Respiratory Rate 16 07/15/24 09:04 Blood Pressure 122/76 07/15/24 09:04 Pulse Oximetry 97 07/15/24 09:04 Oxygen Delivery Room Air 07/15/24 09:04 Temperature 37.1 C 07/15/24 09:04 Pulse Rate 75 07/15/24 09:04 Respiratory Rate 16 07/15/24 09:04 Blood Pressure 122/76 07/15/24 09:04 Pulse Oximetry 97 07/15/24 09:04 Oxygen Delivery Room Air 07/15/24 09:04 Vitals reviewed by me Lab Data Lab results reviewed: Yes I reviewed the patient's lab results. Discharge Plan Discharge Clinical Impression: Influenza A Patient Disposition: Home, Self-Care Condition: Stable Instructions: Antibiotic Form Additional Instructions: Continue to push oral hydration drinking plenty of fluids, continue to get plenty of rest You may take Mucinex / Coricidin / Honey/ warm tea for your symptoms Your symptoms may last 7-10 days however by day 5-6 you should be feeling some improvement not worse Please follow up with your PCP in 1 week If you develop any of worsening symptoms such as shortness of breath/ difficulty breathing/ chest pain/ vomiting - proceed to the ER> Patient Language: Czech Prescriptions: No Action atorvastatin 20 mg tablet 20 mg PO QHS Qty: 90 3RF hydrochlorothiazide 25 mg tablet 25 mg PO DAILY Qty: 90 3RF lisinopril 40 mg tablet 40 mg PO DAILY Qty: 90 3RF amlodipine 10 mg tablet 10 mg PO DAILY Qty: 90 2RF sildenafil 50 mg tablet 50 mg PO DAILY PRN (Reason: sexual activity) Qty: 30 2RF Rx Instructions: administer 30 minutes to 4 hours before activity diclofenac sodium 75 mg tablet,delayed release (DR/EC) 75 mg PO BID Qty: 90 0RF Follow-up/Referrals: Nixon Snell MD [Primary Care Provider] - 1 Week Time of Disposition: 09:35
[2024-07-15 09:42] LABS: EDCOVIDSCREEN Negative (Negative); EDINFLUASCREEN Positive (Negative); EDINFLUBSCREEN Negative (Negative)
== END 2024-07-15 09:44 | disposition home or self-care (01) ==
PROVIDERS: Emergency Provider Nurse Practitioner Family; PCP Family Medicine
DX: J10.1 Influenza due to other identified influenza virus with other respiratory manifestations (principal); I10 Essential (primary) hypertension; E78.5 Hyperlipidemia, unspecified; Z20.822 Contact with and (suspected) exposure to COVID-19
CPT/HCPCS: 87426; 87804; 99212; G0463

== ENCOUNTER 2024-10-03 17:11 | Emergency (ER) | payer OTHER, SELFPAY ==
[2024-10-03 17:17] VITALS: BP 123/70; PULSE 54; RESP 18; TEMP 36.8; O2SAT 99
--- NOTE | 2024-10-03 18:06 | ED.URI ---
HPI - URI/Sore Throat General Chief Complaint: Upper Respiratory Infection Stated Complaint: sinus congestion Time Seen by Provider: 10/03/24 18:00 Source: patient and RN notes reviewed Mode of arrival: ambulatory Limitations: no limitations History of Present Illness HPI Narrative: 59-year-old male presents Express Care complaining of upper respiratory symptoms for 9 days. Patient reports sinus pressure, yellow nasal discharge, productive cough, and congestion. Patient has not taken anything fcnx-lim-katnegn for symptom management. Patient states the symptoms are continuing to get worse he feels like he is not getting any better. Patient denies any sore throat, ear pain, chest pain, shortness of breath, fevers, body aches, chills, nausea, vomiting, diarrhea. Related Data Home Medications ?Medication ?Instructions ?Recorded ?Confirmed ?Last Taken ?Type secukinumab 150 mg/mL subcutaneous 150 mg subcut ONCE 09/27/24 Unknown History pen injector Allergies Allergy/AdvReac Type Severity Reaction Status Date / Time No Known Allergies Allergy Verified 10/03/24 17:24 Review of Systems Review of Systems: CONSTITUTIONAL: Denies fever, chills, body aches or sweats. EYES: Denies visual changes, redness, or discharge. ENT: Denies sore throat, or otalgia. Positive for congestion, rhinorrhea, and sinus pressure CARDIOVASCULAR: Denies chest pain, palpitations, or edema. RESPIRATORY: Positive for cough. Negative for dyspnea. GASTROINTESTINAL: Denies abdominal pain, nausea, vomiting, or diarrhea. GENITOURINARY: Denies dysuria or hematuria. SKIN: Denies rash or itching. MUSCULOSKELETAL: Denies back pain, joint pain, or myalgia. NEUROLOGIC: Denies headache, numbness, or weakness. PSYCHIATRIC: Denies anxiety or depression. All other systems reviewed are negative, except as documented in HPI. [facility] Past Medical History Medical History Fatty liver Obesity Colon cancer screening Belching symptom Chronic bilateral low back pain Seronegative rheumatoid arthritis MONIKA (obstructive sleep apnea) IFG (impaired fasting glucose) HLD (hyperlipidemia) HTN (hypertension) Surgical History Surgical History H/O Achilles tendon repair Family History Family History Mother Hypertension Family history of diabetes mellitus in first degree relative Father Family history of elevated blood lipids Sibling Family history of malignant neoplasm of breast in first degree relative Social History Social History Social History: Smoking status: Never smoker Second hand tobacco smoke exposure: No Alcohol intake: current Alcohol use details: Occasionally Substance use: never Substance use type: does not use Do You Feel Safe in your Home?: Yes Lack of Transportation: No Lack of Food: Never True Current Housing: I Have Housing Concerned About Future Housing: No Difficulty Paying Gas/Electric Bills: No Difficulty Paying for Meds: No Currently Unemployed: YES Education: Don't Know Difficulty w/ Childcare or Family Care: No Living arrangements: with family Occupation/Education: retired Gender identity (if verbalized by the patient): Male Sexual Orientation (if Verbalized by the Patient): Straight or Heterosexual Spiritual care concerns: No Comments At the time of my signature, I reviewed and agree with the nursing past medical, surgical, social, and family history. There is no relevant family history pertinent to the patient complaint. Exam Narrative: GENERAL: This is a well-nourished, well-developed adult, in no apparent distress. They are non ill-appearing, nontoxic appearing. HEAD: normocephalic, atraumatic. EYES: Sclera clear/white. Conjunctiva normal. Vision is grossly intact. Extraocular movements intact EARS: External ears normal, auditory canals clear and without drainage, TMs normal without perforation. Hearing grossly intact. NOSE: External nose normal with no obvious nasal discharge, nasal turbinates erythematous with yellow discharge present THROAT: Mucous membranes moist, posterior pharynx erythemic without swelling. Postnasal drip present. Uvula midline. NECK: Neck supple, non-tender without lymphadenopathy, masses or thyromegaly. CARDIOVASCULAR: Regular rate and rhythm without murmurs, gallops, or rubs. RESPIRATORY: Clear to auscultation. Breath sounds equal bilaterally. No wheezes, rales, or rhonchi. SKIN: warm, Dry, intact with no suspicious lesions or rash, good texture and turgor. NEURO: awake, alert, and oriented to person, place and time. There were no obvious focal neurologic abnormalities. EXTREMITIES: No joint tenderness, effusion, or edema noted. BACK: Nontender without deformity. Course Course Emergency Course: Portions of this record may have been created with voice recognition software Level of Care: Express Care Visit Vital Signs Vital signs: Vital Signs Temperature 98.2 F 10/03/24 17:17 Pulse Rate 54 L 10/03/24 17:17 Respiratory Rate 18 10/03/24 17:17 Blood Pressure 123/70 10/03/24 17:17 Pulse Oximetry 99 10/03/24 17:17 Oxygen Delivery Room Air 10/03/24 17:17 Temperature 98.2 F 10/03/24 17:17 Pulse Rate 54 L 10/03/24 17:17 Respiratory Rate 18 10/03/24 17:17 Blood Pressure 123/70 10/03/24 17:17 Pulse Oximetry 99 10/03/24 17:17 Oxygen Delivery Room Air 10/03/24 17:17 Reviewed MDM - URI/Sore Throat MDM Narrative Medical decision making narrative: Given patient's length of symptoms it is likely has developed a bacterial sinusitis. Will treat empirically with Augmentin. Discussed physical exam findings. Advised supportive measures and signs/symptoms to go to the ER. Pt is appropriate for outpt treatment and f/u. Differential Diagnosis Differential diagnosis: Likely upper respiratory infection, sinusitis and viral infection Critical Care Time Critical Care Time Critical Care Time: No Discharge Plan Discharge Clinical Impression: Sinusitis Qualifiers: Sinusitis location: unspecified location Chronicity: acute Recurrence: non-recurrent Qualified Code(s): J01.90 - Acute sinusitis, unspecified Patient Disposition: Home Condition: Stable Instructions: Antibiotic Form, Sinusitis (ED) Additional Instructions: Take the antibiotics as directed and complete the course even if you start to feel better. You may use a Neti pot saline rinse 3 times a day With lukewarm distilled water Use a humidifier or vaporizer at night. Drink plenty of water. 8-10 glasses per day. Use flonase 2 times per day for 5 days then as needed Take mucinex 2 times per day and be sure to take with 8oz of water. Follow up with Primary provider if not getting better. Return to ER for new or worsening symptoms. Patient Language: Faroese Prescriptions: New amoxicillin-pot clavulanate 875-125 mg tablet 1 tablet PO Q12H 7 Days Qty: 14 0RF No Action atorvastatin 20 mg tablet 20 mg PO QHS Qty: 90 3RF hydrochlorothiazide 25 mg tablet 25 mg PO DAILY Qty: 90 3RF lisinopril 40 mg tablet 40 mg PO DAILY Qty: 90 3RF amlodipine 10 mg tablet 10 mg PO DAILY Qty: 90 2RF sildenafil 50 mg tablet 50 mg PO DAILY PRN (Reason: sexual activity) Qty: 30 2RF Rx Instructions: administer 30 minutes to 4 hours before activity diclofenac sodium 75 mg tablet,delayed release (DR/EC) 75 mg PO BID Qty: 90 0RF secukinumab 150 mg/mL pen injector 150 mg subcut ONCE Patient Comments: Rheum Follow-up/Referrals: Nixon Snell MD [Primary Care Provider] - Time of Disposition: 18:05
== END 2024-10-03 18:11 | disposition home or self-care (01) ==
PROVIDERS: PCP Family Medicine
DX: J01.90 Acute sinusitis, unspecified (principal); I10 Essential (primary) hypertension; E78.5 Hyperlipidemia, unspecified; R73.01 Impaired fasting glucose; M06.00 Rheumatoid arthritis without rheumatoid factor, unspecified site; K76.0 Fatty (change of) liver, not elsewhere classified; E66.9 Obesity, unspecified; Z68.36 Body mass index [BMI] 36.0-36.9, adult
CPT/HCPCS: 99213; G0463

== ENCOUNTER 2025-01-27 02:11 | Day surgery (SDC) | payer MEDICARE, SELFPAY ==
--- OUTSIDE RECORDS SUMMARY | 2010-02-07 11:15 | XMS_ITS | Continuity of Care Document ---
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 [address] , [address], [place], [address], [place]. tel:[phone] Family History Family Member Type Diagnosis Age At Onset No Information Payers Payer name Insurance type Covered republican ID Authoriza tion(s) [facility] [id number] Social History Type Description Quantity Date Captured Comments Sex Male Smoking Status No Information Chief Complaint And Reason For Visit No Information Reason For Referral Reason For Referral No Information History Of Present Illness Encounter Date Complaint History Of Prese nt Illness No Information Functional Status Date Functional Assessmen t No Information Instructions Date Instruction Additional Infor mation No Information Assessments Type Assessment Date No Information Patient Care Teams Name Effective Dates (start - stop) Status Members No Information
--- OUTSIDE RECORDS SUMMARY | 2024-09-29 08:50 | XMS_ITS ---
Author Organization [address] Address [address] [place], [place] [id number] Care Team Providers Care Paraprofessional Education Assistant Name Role Phone Eri Sultana Unavailable [phone] Allergies No Known Allergies Medications Medication SIG (Take, Route, Frequency, Duration) Notes Start Date End Date Status Probiotic 1-250 BILLION-MG as directed Orally Active Cosentyx Sensoready Pen 150 MG/ML Inject entire contents of pen (150mg/1mL) via subcutaneous route once a week at weeks 0, 1, 2, 3, and 4, rotating injection sites Loading Dose 09/30/2024 Active Lisinopril 40 MG 1 tablet Orally Once a day Active Cosentyx Sensoready Pen 150 MG/ML Inject entire contents of pen (1mL) via subcutaneous route once ever 4 weeks, rotating sites for 84 days Maintenance Dose 09/30/2024 Active Cosentyx Sensoready Pen 150 MG/ML as directed Subcutaneous Active Diclofenac Sodium 75 MG 1 tablet as need ed Orally Twice a day Active Folic Acid 1 MG 1 tablet Orally Once a day Active Omeprazole 40 MG 1 capsule 1/2 to 1 hour before morning meal Orally Once a day Active Atorvastatin Calcium 40 MG 1 tablet Orally Once a day Active hydroCHLOROthiazide 25 MG 1 tablet in th e morning Orally Once a day Active Social History Tobacco Use: Social History Observation Description Date Details (start date - stop date) Never Smoker NA - NA Sex Assigned At : Social History Observation Description Sex Assigned At Male Tobacco Control (Standard) Question Answer Notes Tobacco use: Nonsmoker Problems Problem Type SNOMED Code ICD Code Onset Dates Problem Status W/U Status Risk Notes Problem Rheumatoid arthritis (04399687) Rheumatoid arthritis, involving unspecified site, unspecified whether rheumatoid factor present (M06.9) Active confirmed Problem PsA (Psoriatic arthritis) (422048018) PSA (psoriatic arthritis) (L40.50) Active confirmed Problem Psoriasis (6243966) Psoriasis (L40.9) Active co nfirmed Problem Degeneration of lumbar intervertebral disc (78940190) Other intervertebral disc degeneration, lumbar region (M51.36) Active confirmed Problem Flatulence, eructation and gas pain (490666636) Bloating (R14.0) Active confirmed Problem Gastroesophageal reflux disease (893779923) GERD (gastroesophageal reflux disease) (K21.9) Active confirmed Problem 418745123 Arthropathic psoriasis, 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) Active confirmed Vital Signs Height 72 in 09/29/2024 Weight 265 lbs 09/29/2024 BMI 35.94 kg/m2 09/29/2024 Height-cm 182.88 cm 09/29/2024 Weight-kg 120.2 kg 09/29/2024 Encounters Encounter Location Date Provider Diagnosis [address] [place], [place] [id number] 09/29/2024 Eri Macurvoa Arthropathic psoriasis, unspecified L40.50 ; 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 Gómez is a 59-year-old male with psoriatic arthritis, currently managed by Ms. Varsha Trujillo. At this time, patient will begin Cosentyx. Patient will be monitored senior care for symptom control and side effects. SCREENING: (09/27/2024) CDAI: 17.5 LABS: QuantiFERON-TB Gold (06/23/2024): Negative Hepatitis B Surface Antigen (06/23/2024): NR Psoriatic Arthritis is chronic in nature with periods of remission and flares. Flares can be triggered by stress, infections (group A strep), certain medications, and alcohol. Cosentyx can worsen Crohn's disease, immunosuppressi on, allergic reactions and infections.Vidya ent to call the office with any concerns. 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 Biologic/small molecule medications can have significant side effects that may require blood test monitoring on a regular basis. Patient to contact providers for fever, chills, night sweats, malaise, abdominal pain, weakness, fatigue, headaches, infections, difficulty breathing or persistent cough, new skin lesions, or other unusual symptoms. 09/29/2024 Routine health maintenance (ICD-10 - Z00.00) https://www.cdc .gov/vaccines/s chedules/downlo ads/adult/adult -combined-sched ule.pdf 09/29/2024 Other Plan Of Treatment Medication Medication Name Sig Start Date Stop Date Notes Cosentyx Sensoready Pen 150 MG/ML Inject entire contents of pen (150mg/1mL) via subcutaneous route once a week at weeks 0, 1, 2, 3, and 4, rotating injection sites 09/30/2024 Loading Dose Cosentyx Sensoready Pen 150 MG/ML Inject entire contents of pen (1mL) via subcutaneous route once ever 4 weeks, rotating sites for 84 days 09/30/2024 12/23/2024 Maintenance Dose Treatment Notes Assessment Notes Arthropathic psoriasis, unspecified Mr. Gómez is a 59-year-old male with psoriatic arthritis, currently managed by Ms. Varsha Trujillo. At this time, patient will begin Cosentyx. Patient will be monitored senior care for symptom control and side effects. SCREENING: (09/27/2024) CDAI: 17.5 LABS: QuantiFERON-TB Gold (06/23/2024): Negative Hepatitis B Surface Antigen (06/23/2024): NR Psoriatic Arthritis is chronic in nature with periods of remission and flares. Flares can be triggered by stress, infections (group A strep), certain medications, and alcohol. Cosentyx can worsen Crohn's disease, immunosuppression, allergic reactions and infections.Patient to call the office with any concerns. Other senior care (current) drug therapy W hen on high-risk medications, patient must be vigilant about any new symptoms and understand the risks and side effects of their treatment. Biologic/small molecule medications can have significant side effects that may require blood test monitoring on a regular basis. Patient to contact providers for fever, chills, night sweats, malaise, abdominal pain, weakness, fatigue, headaches, infections, difficulty breathing or persistent cough, new skin lesions, or other unusual symptoms. Routine health maintenance https://www.c dc.gov/vaccines/schedules/downloa ds/adult/ucmwm-syvhnxwu-tpwitqoy.pdf Progress Notes * Jeremías GÓMEZDOB:1965 (59 yo M)Acc No.[id number]:09/29/2024 Patient: Jeremías LEWIS Provider: Muriel Sultana :1965 A ge:59 Y S ex:Male Date:09/29/2024 Address:[address] [place], [place] [id number] Subjective: * Chief Complaints: * * HPI: T elemedicine: Mr. Gómez is a 59 year-old male with psoriatic arthritis, currently managed by Ms. Varsha Trujillo. Patient's past medical history is notable for psoriasis, degenerative changes on lumbar spine, bloating, and GERD. F amily history notable for psoriasis. RHEUMATOID HISTORY: The patient reports joint pain, swelling, and stiffness specifically in shoulders, back, hands, hips, knees, and ankles. Previously, the patient has tried and failed MTX, A mjevita, Diclofenac, Humira, Arava, and SSZ. Patient has used MTX in the past for 1 year, but has discontinued due to ineffectiveness. The patient does occasionally take OTC meds, including T ylenol. Patient denied hospitalizations or ER visits within the last six months. Patient was called to verify their medical status and their prescription status. At this time, there are no changes to our prescription plans. [facility] is assisting as a specialty team in monitoring their health in consult with the patient's public address announcer. Biologic/small molecule agents affect human immunology can put patients at risk for various infections and malignancies. Proper monitoring with lab tests and an updated vaccination profile can minimize these risks. A [facility] count team clerk will be available to the patient for medication management. * Medical History: P SA (psoriatic arthritis), Psoriasis, Other intervertebral disc degeneration, lumbar region, Bloating, GERD (gastroesophageal reflux disease). * Hospitalization/Major Diagno stic Procedure: D enies Past Hospitalization. * Family History: M other: psoriasis. * Social History: T obacco Use: T obacco Control (Standard) T obacco use: N onsmoker * Medications: T aking Diclofenac Sodium 75 MG Tablet Delayed Release 1 tablet as needed Orally Twice a day , Taking Atorvastatin Calcium 40 MG Tablet 1 tablet Orally Once a day , Taking hydroCHLOROthiazide 25 MG Tablet 1 tablet in the morning Orally Once a day , Taking Folic Acid 1 MG Tablet 1 tablet Orally Once a day , Taking Omeprazole 40 MG Capsule Delayed Release 1 capsule 1/2 to 1 hour before morning meal Orally Once a day , Taking Lisinopril 40 MG Tablet 1 tablet Orally Once a day , Taking Cosentyx Sensoready Pen 150 MG/ML Solution Auto-injector as directed Subcutaneous , Taking Probiotic 1-250 BILLION-MG Capsule as directed Orally , Medication List reviewed and reconciled with the patient * Allergies: N .K.D.A. Objective: * Vitals: W t:265lbs, Wt-k.2 kg, Ht:72in, Ht-cm: 182.88 cm, BMI:35.94Index, Body Surface Area: 2.47. Assessment: * Assessment: 1. A rthropathic psoriasis, unspecified - L40.50 2 . O ther senior care (current) drug therapy - Z79.899 3 . R [place] health maintenance - Z00.00 ? Plan: * Treatment: 2. 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 Biologic/small molecule medications can have significant side effects that may require blood test monitoring on a regular basis. Patient to contact providers for fever, chills, night sweats, malaise, abdominal pain, weakness, fatigue, headaches, infections, difficulty breathing or persistent cough, new skin lesions, or other unusual symptoms. 3. R [facility] maintenance Notes:https://www.cdc.gov/vaccines/schedu les/downloads/adult/khiwn-ozttskmx-rluhmtj e.pdf * Billing Information: * Visit Code: * Procedure Codes: Care Plan Details* * Electronic signature of COY Rao on 01/27/2025 at 02:13 AM CDT Sign off status: Pending * Provider: Muriel Sultana Date: 0 09/29/2024 Generated for Livan ding/Susanne/eTransmitting on: 0 01/27/2025 02:13 AM CDT History and Physical Notes * HPI (History of Present Illness) Category Sub-Category Detail Notes Category Not es Telemedicine Mr. Gómez is a 59 year-old male with psoriatic arthritis, currently managed by Ms. Varsha Trujillo. Patient's past medical history is notable for psoriasis, degenerative changes on lumbar spine, bloating, and GERD. Family history notable for psoriasis. RHEUMATOID HISTORY: The patient reports joint pain, swelling, and stiffness specifically in shoulders, back, hands, hips, knees, and ankles. Previously, the patient has tried and failed MTX, Amjevita, Diclofenac, Humira, Arava, and SSZ. Patient has used MTX in the past for 1 year, but has discontinued due to ineffectiveness. The patient does occasionally take OTC meds, including Tylenol. Patient denied hospitalizations or ER visits within the last six months. Patient was called to verify their medical status and their prescription status. At this time, there are no changes to our prescription plans. [facility] is assisting as a specialty team in monitoring their health in consult with the patient's public address announcer. Biologic/small molecule agents affect human immunology can put patients at risk for various infections and malignancies. Proper monitoring with lab tests and an updated vaccination profile can minimize these risks. A [facility] count team clerk will be available to the patient for medication management.
--- OUTSIDE RECORDS SUMMARY | 2024-10-28 10:46 | XMS_ITS ---
Author Organization [address] Address [address] [place] [id number] Care Team Providers Care Machine Tack Puller Name Role Phone Eri Sultana Unavailable [phone] Medications Medication SIG (Take, Route, Frequency, Duration) Notes Start Date End Date Status Enbrel SureClick 50 MG/ML Inject the contents of one (1) autoinjector pen subcutaneously once a week the same day each week Subcutaneous for 84 days 10/28/2024 01/20/2025 Active Social History Sex Assigned At : Social History Observation Description Sex Assigned At Male Encounters Encounter Location Date Provider Diagnosis [address] [place], [place] [phone] 10/28/2024 Eri Sultana Arthropathic psoriasis, unspecified L40.50 Assessments Encounter Date Diagnosis (ICD Code) Assessment Notes Treatment Notes Treatment Clinical Notes Section Notes 10/28/2024 Arthropathic psoriasis, unspecified (ICD-10 - L40.50) Plan Of Treatment Medication Medication Name Sig Start Date Stop Date Notes Cosentyx Sensoready Pen 150 MG/ML Inject entire contents of pen (150mg/1mL) via subcutaneous route once a week at weeks 0, 1, 2, 3, and 4, rotating injection sites 09/30/2024 Loading Dose Enbrel SureClick 50 MG/ML Inject the contents of one (1) autoinjector pen subcutaneously once a week the same day each week Subcutaneous for 84 days 10/28/2024 01/20/2025 Cosentyx Sensoready Pen 150 MG/ML Inject entire contents of pen (1mL) via subcutaneous route once ever 4 weeks, rotating sites 09/30/2024 12/23/2024 Maintenance Dose Progress Notes * Shira GÓMEZ:1965 (59 yo M)Acc No.[id number]:10/28/2024 Patient: Jeremías LEWIS :1965 A ge:59 Y S ex:Male Address:[address] [place] [address], [id number] * Refills Stop Cosentyx Sensoready Pen Solution Auto-injector, 150 MG/ML, Inject entire contents of pen (150mg/1mL) via subcutaneous route once a week at weeks 0, 1, 2, 3, and 4, rotating injection sites Stop Cosentyx Sensoready Pen Solution Auto-injector, 150 MG/ML, Inject entire contents of pen (1mL) via subcutaneous route once ever 4 weeks, rotating sites Start Enbrel SureClick Solution Auto-injector, 50 MG/ML, Subcutaneous, 12 Milliliter, Inject the contents of one (1) autoinjector pen subcutaneously once a week the same day each week, 84 days, Refills=0 * true * Date: Generated for Livan ding/Susanne/Lidiaitting on: 0 01/27/2025 02:13 AM CDT
[2025-01-18 12:52] VITALS: BMI 36.6
--- NOTE | 2025-01-18 12:53 | PC.NURSE ---
Report to the Outpatient Waiting Room, entrance under the green pavilion located off [facility], at time _1230_ on date _01-27-2025_. Planned Procedure Time: _130pm_.? Time changes happen often and if your time is changed the preop area will call you the afternoon before. - You and your visitor will be asked to self-screen and do not enter if you have any COVID symptoms. Please call surgeon if you need to reschedule. - A mask is optional within the hospital at this time. No smoking, or chewing tobacco (or any form of nicotine). Ok for breakfast and a light lunch. Take only the following medications with a SIP of water on the morning of surgery: ___Take medicines as usual but check with Dr Ventura's office about Diclofenac if OK to take.____ DO NOT STOP ANY OF YOUR OTHER PRESCRIPTION MEDICATIONS PRIOR TO SURGERY EXCEPT THE FOLLOWING Hold all vitamins and supplements for 3 days per anesthesiologist. Medications to discontinue per physician Date to take last dose Please no make-up, nail italian, hairspray, perfume, deodorant, or body powder the day of surgery.? No jewelry (including any body piercings) or valuables the day of surgery, leave them at home.? Please take a shower or bath the night before, or the morning of, surgery with an antibacterial soap.? Wear comfortable, loose fitting clothing.? - Jewelry must be removed prior to entering the operating room.? Rings and piercings that are not removed may be cut off. - The hospital will not accept responsibility for valuables.? - Please leave all valuables, including medications, at home the day of surgery. If you are going home after surgery, a licensed truss driver helper must drive you home.? - NO public transportation without another adult if you receive anesthesia. - We recommend that an adult stay with you for 24 hours following discharge. - We also recommend that you do not drive, make important decision, drink alcoholic beverages, or take any drugs that were not prescribed by your health care provider for at least 24 hours after your discharge time. Follow any additional instructions given to you from your surgeon. Telephone instructions given to __Jeremías___and asked if any additional questions and then verbalized understanding. Patient advised to call surgeon office or pre surgery nurse liaison [phone] if any additional questions.
--- OUTSIDE RECORDS SUMMARY | 2025-01-27 02:13 | XMS_ITS | Clinical Summary ---
Author Organization [facility] Address [address] [place] [address] Care Team Providers Care Doctor Of Pharmacy Name Role Phone Nixon Snell MD Primary Care Provider [phone] Jeremías Gordon DPM Unavailable Allergies No known active allergies Medications atorvastatin (LIPITOR) 20 MG tablet Take 20 mg by mouth daily. Active diclofenac EC (VOLTAREN) 75 MG tablet Take 75 mg by mouth 2 (two) times daily. 11/04/2021 Active folic acid (FOLVITE) 1 MG tablet Take 1 mg by mouth daily. Active methotrexate (TREXALL) 2.5 MG tablet Take 24 mg by mouth once a week. 10/31/2021 Active lisinopril-hydr oCHLOROthiazide (ZESTORETIC) 10-12.5 MG tablet Take 2 tablets by mouth daily. Active Family History Medical History Relation Comments Lung Disease Father COPD Mother Cancer Sister 1 breast Cancer Sister 2 breast Relation Status Comments Father Maternal Grandmother (Age 95) Mother Alive Paternal Grandfather (Age 88) Paternal Grandmother (Age 88) Sister 1 Sister 2 Social History Tobacco Use Types Packs/Day Years Used Date Smoking Tobacco: Never Smokeless Tobacco: Never Alcohol Use Standard Drinks/Week Comments Yes 3 (1 standard drink = 0.6 oz pur e alcohol) Sex and Gender Information Value Date Recorded Sex Assigned at Not on file Legal Sex Male 3:15 PM CDT Gender Identity Not on file Sexual Orientation Not on file Last Filed Vital Signs Vital Sign Reading Time Taken Comments Blood Pressure 114/72 04/04/2022 12:47 PM ANESTHESIOLOGIST/PHYSICIAN Pulse 65 04/04/2022 12:47 PM ANESTHESIOLOGIST/PHYSICIAN Temperature 36.1 C (97 F) 04/04/2022 12:47 PM ANESTHESIOLOGIST/PHYSICIAN Respiratory Rate 16 04/04/2022 12:4 7 PM ANESTHESIOLOGIST/PHYSICIAN Oxygen Saturation 95% 04/04/2022 12: 47 PM ANESTHESIOLOGIST/PHYSICIAN Inhaled Oxygen Concentration - - Weight 113.8 kg (250 lb 14.1 oz) 04/04/2022 8:33 AM ANESTHESIOLOGIST/PHYSICIAN Height 182.9 cm (6') 04/04/2022 8:33 AM ANESTHESIOLOGIST/PHYSICIAN Body Mass Index 34.03 04/04/2022 8:33 AM ANESTHESIOLOGIST/PHYSICIAN Plan of Treatment Health Maintenance Due Date Last Done Comments Colorectal Cancer Screening Colonoscopy (10 Years) 1965 Annual Physical 09/03/1966 Hepatitis C 09/03/1981 Pneumococcal Vaccine: 50+ Years (1 of 1 - PCV) 09/03/2013 Zoster Vaccines (1 of 2) 09/03/2013 COVID-19 Vaccine (4 - 2023-2 5 season) 2024 03/26/2021, 08/14/2020, 07/24/2020 DTaP, Tdap and Td Vaccines ( 2 - Td or Tdap) 11/27/2030 11/27/2020 RSV Immunization or 60+ Years (1 - 1-dose 75+ series) 09/03/2038 Meningococcal B Vaccine Aged Out No l onger eligible based on patient's age to complete this topic Meningococcal Vaccine Aged Out No jake deandre eligible based on patient's age to complete this topic RSV Immunizations Under 20 Months Aged Out No longer eligible b ased on patient's age to complete this topic Medical Devices Implanted Type Area Cold Water Machine Operator Device Identifier Shelf Expiration Date Model / Serial / Lot [place] Reelx Stt 4.5 - [id number] Implanted:Qty : 1 on 04/04/2022 by Jeremías Gordon DPM at [facility] [place] Right: Ankle [employer] [id number] 08/31/2023 3910-600- [id number] / / [id number] Tissue Mend Implanted:Qty : 1 on 04/14/2019 by Jeremías Gordon DPM at [facility] Left: Ankle [id number] 11/21/2020 6495-9-00 1 [id number] Reelx Stt Implanted:Qty : 1 on 04/14/2019 by Jeremías Gordon DPM at [facility] Left: Ankle [employer] [id number] 03/02/2021 3910-600- [id number] / / [id number] Tissue Repair Matrix Implanted:Qty : 2 on 04/04/2022 by Jeremías Gordon DPM at [facility] Right: Ankle [employer] 03/24/2023 6495-9-00 [id number] / / [id number] [facility] Care Teams Doctor Of Pharmacy Relationship Specialty Start Date End Date Nixon Snell MD [address] [place] [address] PCP - General FAMILY PRACTICE 04/05/19 Jeremías Gordon DPM [address] [facility] [address] [place] [address] Referring Physician PODIATRY/SURGERY 04/07/19
--- OUTSIDE RECORDS SUMMARY | 2025-01-27 02:13 | XMS_ITS | Patient Health Record ---
Author Organization [facility] Address [address] [place], [place] [address] Care Team Providers Care Clinical Social Work Therapist Name Role Phone ROSAReyna VINI Unavailable [phone] Nixon Snell Unavailable Unavailable Reason For Referral No Information Plan Of Treatment No Information Insurance Providers Payer Name Payer Address Payer Phone Subscriber Number Group Number Insured Name Patient Relationship to Insured Coverage Start Date Coverage End Date [facility] [address] [facility] [phone] [id number] VINI COLE Self - patient is the insured
--- OUTSIDE RECORDS SUMMARY | 2025-01-27 02:13 | XMS_ITS | Patient Health Record ---
Author Organization [facility] Address [address], [place] [id number] Care Team Providers Care Thermal Cutter Hand Name Role Phone Eri Sultana Unavailable [phone] Allergies No Known Allergies Reason For Referral No Information Medications Medication SIG (Take, Route, Frequency, Duration) Notes Start Date End Date Status Diclofenac Sodium 75 MG 1 tablet as need ed Orally Twice a day Active Probiotic 1-250 BILLION-MG as directed Orally Active Lisinopril 40 MG 1 tablet Orally Once a day Active Cosentyx Sensoready Pen 150 MG/ML as directed Subcutaneous Active Folic Acid 1 MG 1 tablet Orally Once a day Active Omeprazole 40 MG 1 capsule 1/2 to 1 hour before morning meal Orally Once a day Active Atorvastatin Calcium 40 MG 1 tablet Oral ly Once a day Active hydroCHLOROthiazide 25 MG [...] Problem Status W/U Status Risk Notes Problem [id number] Arthropathic psoriasis, 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) Active confirmed Problem Degeneration of lumbar intervertebral disc (03342649) Other intervertebral disc degeneration, lumbar region (M51.36) Active confirmed Problem Rheumatoid arthritis (54994619) Rheumatoid arthritis, involving unspecified site, unspecified whether rheumatoid factor present (M06.9) Active confirmed Problem Psoriasis (3576666) Psoriasis (L40.9) Active co nfirmed Problem Flatulence, eructation and gas pain (211091568) Bloating (R14.0) Active confirmed Problem Gastroesophageal reflux disease (251973989) GERD (gastroesophageal reflux disease) (K21.9) Active confirmed Problem PsA (Psoriatic arthritis) (757501489) PSA (psoriatic arthritis) (L40.50) Active confirmed Vital Signs Height-cm 182.88 cm 09/29/2024 Weight-kg 120.2 kg 09/29/2024 Height 72 in 09/29/2024 Weight 265 lbs 09/29/2024 BMI 35.94 kg/m2 09/29/2024 Encounters Encounter Location Date Provider Diagnosis [address] [place], [place] [id number] 09/29/2024 Eri Espurvoa Arthropathic psoriasis, unspecified L40.50 ; Other senior care (current) drug therapy Z79.899 and Routine health maintenance Z00.00 [address] [place], [place] [id number] 10/28/2024 Eri Espurvoa Arthropathic psoriasis, unspecified L40.50 Assessments Encounter Date Diagnosis (ICD Code) Assessment Notes Treatment Notes Treatment Clinical Notes Section Notes 10/28/2024 Arthropathic psoriasis, unspecified (ICD-10 - L40.50) 09/29/2024 Arthropathic psoriasis, unspecified (ICD-10 - L40.50) Mr. Gómez is a 59-year-old male with psoriatic arthritis, currently managed by Ms. Varsha Trujillo. At this time, patient will begin Cosentyx. Patient will be monitored salvage determiner for symptom control and side effects. SCREENING: [...] the office with any concerns. 09/29/2024 Other senior care (current) drug therapy (ICD-10 - Z79.899) When [...] health maintenance (ICD-10 - Z00.00) https://www.cdc .gov/vaccines/s bradlyles/downlo ads/adult/adult -combined-sched ule.pdf 09/29/2024 Other Plan Of Treatment No Information Medical (General) History Medical History History ICD Code PSA (psoriatic arthritis) L40.50 Psoriasis L40.9 Other intervertebral disc degeneration, lumbar region M51.36 Bloating R14.0 GERD (gastroesophageal reflux disease) K 21.9
--- OUTSIDE RECORDS SUMMARY | 2025-01-27 02:13 | XMS_ITS | Clinical Summary ---
Author Organization [facility] Address [address] [place] [address] Care Team Providers Care Correction Officer Head Name Role Phone Nixon Snell MD Primary Care Provider Wil Saenz MD Unavailable Jarrett King Unavailable Allergies No known active allergies Medications diclofenac DR (VOLTAREN) 75 mg EC tablet Take 1 tablet (75 mg total) by mouth 2 (two) times a day 2 Active leflunomide (ARAVA) 10 mg tablet Take 1 tablet (10 mg total) by mouth daily before breakfast 2 Active methotrexate 2.5 mg tablet Take 24 mg by mouth every 7 days 2 Active folic acid (FOLVITE) 1 mg tablet Take 1 tablet (1 mg total) by mouth daily Active atorvastatin (LIPITOR) 20 mg tablet Take 1 tablet (20 mg total) by mouth daily Active lisinopril-hydr oCHLOROthiazide (ZESTORETIC) 10-12.5 mg per tabletIndicatio ns:hypertension Take 2 tablets by mouth daily Active aspirin 325 mg tabletIndicatio ns:prevention of thrombosis Take 1 tablet (325 mg total) by mouth daily Active HYDROcodone-ava taminophen (NORCO) 5-325 mg per tablet Take 1-2 tablets by mouth 2 Active lisinopriL (PRINIVIL,ZESTR IL) 40 mg tablet Take 2 tablets (80 mg total) by mouth daily 2 40mg tablets Active hydroCHLOROthia zide (HYDRODIURIL) 25 mg tablet Take 1 tablet (25 mg total) by mouth daily Active omeprazole (PriLOSEC) 40 mg capsule Take 1 capsule (40 mg total) by mouth daily Active adalimumab-atto (Amjevita,CF,) 40 mg/0.8 mL syringeIndicati ons:Rheumatoid Arthritis Inject 40 mg under the skin every 14 (fourteen) days Active gabapentin (NEURONTIN) 100 mg capsule Take 1 capsule (100 mg total) by mouth 3 (three) times a day 90 capsule 4 03/03/20 25 Active Active Problems No known active problems Encounters Date Type Department Care Team Description 10/27/2024 8:58 AM CDT - 10/27/2024 11:59 PM CDT Hospital Encounter [facility] Pain [facility]mt [address] [place], [place] [phone] Wil Saenz MD Bulge of lumbar disc without myelopathy (Primary Dx); Facet arthropathy, lumbar; Sacroiliitis Discharge Disposition: Discharge to home or self care from Last 3 Months Immunizations Immunization Administration Dates Next Due Tdap 11/27/2020 Surgical History Surgery Date Site/Laterality Comments ACHILLES TENDON SURGERY 05/25/2018 - 05/24/2019 Medical History Medical History Date Comments Hypertension Hyperlipidemia Family History Medical History Relation Name Comments Diabetes Mother Heart disease Mother Hypertension Mother Cancer Sister 1 Cancer Sister 2 Relation Name Status Comments Father Mother Sister 1 Sister 2 Alive Social History Tobacco Use Types Packs/Day Years Used Date Smoking Tobacco: Never Tobacco Cessation:Counseling Given: Not Answered AUDIT-C Answer Date Recorded Q1: How often do you have a drink containing alc ohol? Monthly or less 10/27/2024 Q2: How many drinks containi ng alcohol do you have on a typical day when you are drinking? 1 or 2 10/27/2024 Q3: How often do you have si x or more drinks on one occasion? Never 10/27/2024 Sex and Gender Information Value Date Recorded Sex Assigned at Not on file Legal Sex Male 3:49 AM DIRECTOR OF CLINICAL TRIALS Gender Identity Male 04/15/2023 5:33 PM DIRECTOR OF CLINICAL TRIALS Sexual Orientation Straight 04/15/2023 5: 33 PM DIRECTOR OF CLINICAL TRIALS Obstetrics History Last Filed Vital Signs Vital Sign Reading Time Taken Comments Blood Pressure 135/78 10/27/2024 9:04 AM CDT Pulse 62 10/27/2024 9:04 AM CDT Temperature 36.3 C (97.4 F) 10/27/2024 9:04 AM CDT Respiratory Rate 18 10/27/2024 9:04 AM CDT Oxygen Saturation 96% 10/27/2024 9:04 AM CDT Inhaled Oxygen Concentration - - Weight 121.2 kg (267 lb 4.8 oz) 10/27/2024 9:04 AM CDT Height 182.9 cm (6') 10/27/2024 9:04 AM CDT Body Mass Index 36.25 10/27/2024 9:04 AM CDT Plan of Treatment Health Maintenance Due Date Last Done Comments Colon Cancer Screening-Colonoscopy 1965 Depression Screening 1965 Hepatitis C Screening 1965 Prostate Cancer Screening-PSA 1965 Hepatitis B Screening 09/03/1981 Regular Well Visit/Exam 18-64 09/03/1981 Pneumococcal vaccine <65 (1 of 2 - PCV) 09/03/1982 Zoster Vaccine (1 of 2) 09/03/1982 Covid-19 Vaccine ( season) 2024 03/26/2021, 08/14/2020, 07/24/2020 Influenza Vaccine (#1) 2025 DTaP/Tdap/Td Vaccine (2 - Td or Tdap) 11/27/203010/2020 Insurance [facility] Care Teams Correction Officer Head Relationship Specialty Start Date End Date Nixon Snell MD [address] [facility] [address] [place] [address] PCP - General 02/21/15 Wil Saenz MD [address] [facility] [address] [place] [address] Consulting Physician Pain Management 03/16/24 Jarrett King PA [address] [place] [address] Physician Motors Assembler Neurosurgery 06/28/24
--- OUTSIDE RECORDS SUMMARY | 2025-01-27 02:14 | XMS_ITS | Clinical Summary ---
Author Organization 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 Gender Identity Not on file Sexual Orientation Not on file Plan of Treatment Health Maintenance Due Date Last Done Comments Hepatitis C Virus (HCV) Screening 1965 TdaP Immunization 1965 Cologuard 09/03/2008 Colonoscopy 09/03/2008 Colorectal Cancer Screening 09/03/2008 Immunochemical Fecal Occult Blood 09/03/2008 Pneumococcal Immunization (5 0+ years) (1 of 1 - PCV) 09/03/2013 Zoster Immunization (1 of 2) 09/03/2013 SARS-COV-2 Immunization ( - season) 2024 Influenza Immunization (#1) 2025 Respiratory Syncytial Virus (RSV) Immunization (Adult) (1 - 1-dose 75+ series) 09/03/2038 Hepatitis B Immunization Aged Out No longer eligible based on patient's age to complete this topic Human Papillomavirus (HPV) Immunization Aged Out No longer eligible b ased on patient's age to complete this topic Meningococcal Immunization (ACWY) Aged Out No longer eligible based on patient's age to complete this topic Rotavirus Immunization Aged Out No lo nger eligible based on patient's age to complete this topic
[2025-01-27 11:40] VITALS: BP 143/85; PULSE 65; TEMP 36.6; O2SAT 97
--- NOTE | 2025-01-27 11:49 | WPDHPUPDATE1 ---
History and Physical Update Update Date/Time: 01/27/25 11:49 History and Physical has been reviewed, including an updated exam of the patient. There are NO changes in the patient's condition. Risks, benefits, and alternatives have been discussed and questions answered. Patient agrees to proceed with procedure.
[2025-01-27 12:30] VITALS: BP 113/58; PULSE 56; RESP 14; O2SAT 97
[2025-01-27] MEDS: LIDO 1%/EPINEPHRINE/PF 1:200,000 30 ML VIAL XX (12:31)
[2025-01-27 12:40] VITALS: BP 110/60; PULSE 55; RESP 14; O2SAT 97
--- NOTE | 2025-01-27 12:47 | S_PTH ---
PATIENT: Jeremías Gómez LOC: [facility] U#:[id number] AGE/SX: 59/M ROOM: RE01/27/[address]: Keyshawn Ventura DO : 1965 BED: DIS: 01/27/2025 SPEC #: [id number] RECD: 01/27/25 13:19 STATUS: CAPRI REQ #: [id number] MARY: 01/27/25 12:[address]: Keyshawn Ventura DEPT: [facility] Surgical RECD BY: Lauren Alvarez ENTERED: 01/27/25 13:19 SP TYPE: Surgical OTHR DR: Jeremías Hidalgo PA-C Tissues: A - Mass Procedures: Hematoxylin and Eosin Stain Gross and Microscopic Level 3
[2025-01-27 12:50] VITALS: BP 114/62; PULSE 60; RESP 14; O2SAT 97
[2025-01-27 12:58] VITALS: BP 117/77; PULSE 67
--- NOTE | 2025-01-27 12:59 | W.PM.PROC2 ---
Procedure Note - Detailed Date of Procedure 01/27/25 Pre-op Diagnosis 6cm Right Back Mass Post-op Diagnosis Same Procedure Performed Excision of 6 cm right upper back mass Surgeon Keyshawn Ventura, DO Anesthesia Local (1% lidocaine with epinephrine) Indications This is a 59-year-old man who presented with an enlarging back mass that he 1st noticed several months ago. It has become larger and is causing some discomfort when he leans up against it. The mass appeared to have consistencies of a lipoma. Discussions were made with the patient about treatment options and decision was made to proceed with excision of 6 cm right upper back mass under local anesthesia in the OR. Findings The 6 cm back mass was excised completely. This appeared to be a subcutaneous lipoma. It measured about 6 cm in diameter. No other underlying abnormalities were noted. The mass was excised completely and sent to the lab for pathology. Description of Procedure Procedure as well as risks, benefits, and alternatives were discussed with the patient. Written consent was obtained and placed in chart prior to procedure. Patient was brought back to surgical suite. He was placed in left lateral decubitus position on the operating table. Time-out was done to confirm patient and procedure. His back area was prepped and draped in sterile fashion using chlorhexidine prep. 1% lidocaine with epinephrine was infiltrated locally over the right upper back mass. A 6 cm transverse incision was made over the mass using a 15 blade scalpel. Electrocautery was used for hemostasis and for dissection through the subcutaneous tissue. The mass was encountered and carefully dissected free of the surrounding subcutaneous attachments using electrocautery. The mass was completely excised and sent to the lab for pathology. The wound bed was then inspected. Hemostasis appeared adequate and no other mass or abnormality was noted. The skin edges were then reapproximated using 3-0 nylon vertical mattress interrupted sutures. Bacitracin ointment was then applied followed by 4 x 4 gauze and Medipore tape. The patient was then transferred to recovery. Estimated Blood Loss 5 Pathology Yes (6 cm right upper back mass) Complications No immediate complications Condition Stable Disposition Same day [facility] Billing Surgery - Charge Forward: Surgery Billing
== END 2025-01-27 13:20 | disposition home or self-care (01) ==
PROVIDERS: PCP Physician Assistant; Visit Provider Surgery
PROC: (CPT 11406; principal; 2025-01-27 12:00)
DX: D17.1 Benign lipomatous neoplasm of skin and subcutaneous tissue of trunk (principal)
CPT/HCPCS: 11406; 88304; A9270; J2004